=== PATIENT | female | born 1975 | race Caucasian/White ===

== ENCOUNTER 2018-12-21 15:37 | Inpatient (IN) ==
[2018-12-21] MEDS ORDERED: D5W 1,000 ML IV PRN (17:28)
[2018-12-21] MEDS ORDERED: MAALOX PLUS LIQUID PO PRN (17:28)
[2018-12-21] MEDS ORDERED: IMODIUM PO PRN (17:28)
[2018-12-21] MEDS ORDERED: SEROQUEL PO PRN (17:28)
[2018-12-21] MEDS ORDERED: ZOFRAN ODT PO PRN (17:28)
[2018-12-21] MEDS ORDERED: ZOFRAN IV PRN (17:28)
[2018-12-21] MEDS ORDERED: PHENOBARBITAL IV PRN (17:28)
[2018-12-21] MEDS ORDERED: TYLENOL PO PRN (17:28)
[2018-12-21] MEDS ORDERED: SENOKOT PO PRN (17:28)
[2018-12-21] MEDS ORDERED: MOTRIN PO PRN (17:28)
[2018-12-21] MEDS ORDERED: DULCOLAX PR PRN (17:28)
[2018-12-21] MEDS ORDERED: DESYREL PO PRN (17:28)
[2018-12-21] MEDS ORDERED: BENTYL PO PRN (17:28)
[2018-12-21] MEDS ORDERED: ATARAX PO PRN (17:28)
[2018-12-21] MEDS ORDERED: NICODERM PATCH TD PRN (17:28)
[2018-12-21] MEDS ORDERED: SALINE LOCK IV FLUID XX ONE (17:28)
[2018-12-21] MEDS ORDERED: TUBERSOL ID ONE (17:28)
[2018-12-21] MEDS ORDERED: ROBAXIN PO PRN (17:28)
[2018-12-21] MEDS ORDERED: LIBRIUM PO SCH (17:30)
[2018-12-21 17:39] LABS: URINE SOURCE VOIDED
[2018-12-21 17:55] LABS: UR AMPHETAMINES QUAL NONE DETECTED (NONE DETECT); UR BARBITUATES QUAL NONE DETECTED (NONE DETECT); UR BENZODIAZEPIN QUAL PRESUMPTIVE POSITIVE (NONE DETECT); UR CANNABINOIDS QUAL NONE DETECTED (NONE DETECT); UR COCAINE QUAL NONE DETECTED (NONE DETECT); UR METHADONE QUAL NONE DETECTED (NONE DETECT); UR METHAMPHETAMINE QUAL NONE DETECTED (NONE DETECT); UR OPIATES QUAL NONE DETECTED (NONE DETECT); UR OXYCODONE QUAL NONE DETECTED (NONE DETECT); UR PCP QUAL NONE DETECTED (NONE DETECT); UR PROPOXYPHENE QUAL NONE DETECTED (NONE DETECT); UR TCA QUAL NONE DETECTED (NONE DETECT)
[2018-12-21 18:07] LABS: BILIRUBIN URINE NEGATIVE (NEGATIVE); BLOOD URINE 3+ (NEGATIVE); CLARITY CLEAR (CLEAR); COLOR YELLOW; KETONE URINE 2+(Moderate) mg/dL (NEGATIVE); LEUKOCYTES URINE NEGATIVE (NEGATIVE); NITRITE URINE NEGATIVE (NEGATIVE); PH URINE 6.5; PROTEIN URINE TRACE mg/dL (NEGATIVE); UROBILINOGEN URINE NORMAL
[2018-12-21 18:08] LABS: URINE BACTERIA 2+ /HFP; URINE CAST NONE SEEN /LPF; URINE CRYSTAL NONE SEEN /HPF; URINE EPITHELIAL CELLS >10 /HPF (<10); URINE WBC <10 /HPF (<10); URINE YEAST NONE SEEN /HPF
[2018-12-21 18:24] LABS: HEMATOCRIT 39.5 % (37.0-47.0); HEMOGLOBIN 13.3 g/dL (12.0-16.0); MCH 31.2 PG (27-31); MCHC 33.7 g/dL (33-37); MCV 92.7 FL (81-99); MPV 9.3 FL (7.4-10.4); RBC 4.26 XMIL (4.2-5.4); RDW 14.1 % (11.5-14.5); WBC 10.67 X1000 (4.8-10.8)
[2018-12-21 18:39] LABS: INR 0.93; PROTIME 12.9 Seconds (11.0-16.0)
[2018-12-21 18:59] LABS: AMYLASE 87 U/L (20-200); LIPASE 131 U/L (13-60)
[2018-12-21 19:01] LABS: AGAP 14; ALBUMIN 4.6 g/dL (3.5-5.0); ALKALINE PHOSPHATASE 51 U/L (32-104); BUN 10 mg/dL (8-22); CALCIUM 9.6 mg/dL (8.8-10.2); CHLORIDE 100 mmol/L (98-107); COSMO 273; CREATININE 0.5 mg/dL (0.5-0.9); ESTIMATED GFR > 60; GLUCOSE 101 mg/dL (70-104); GOT 33 U/L (10-30); GPT 41 U/L (10-36); POTASSIUM 3.6 mmol/L (3.5-5.1); SODIUM 137 mmol/L (136-145); TCO2 23 mmol/L (25-35); TOTAL PROTEIN 7.9 g/dL (6.3-8.3)
[2018-12-21] MEDS: LIBRIUM PO SCH (21:08)
--- NOTE | 2018-12-21 23:31 | HISTORY AND PHYSICAL ---
CHIEF COMPLAINT: Nausea, vomiting. HISTORY PRESENT ILLNESS: Patient is a very pleasant female who presented to [facility] secondary to nausea, vomiting, abdominal pain. Notes that she has been having some mild tremors and paresthesias. She has been drinking heavily. She has tried to go to rehab today but they told her given her alcohol level was positive she would need to detox first. PAST MEDICAL HISTORY: She has no active medical problems other than chronic anxiety. MEDICATIONS: No current prescription medications. ALLERGIES: Phenobarbital causing itching. REVIEW OF SYSTEMS: CIWA score 26 secondary to nausea, vomiting, dry heaves, extremely thirsty, itching, diaphoretic, tremors with her arms at rest, she shaking, notes she has a headache. Denies any blurred vision, change in vision, denies any focalized numbness, tingling, weakness in her extremities, denies any dysuria, frequency, urgency, constipation, melena, hematochezia. SUBSTANCE ABUSE HISTORY: She was in treatment in September 2007 stayed for 12 days. Notes that alcohol has caused work problems and social stressors. Started drinking at 16 currently drinks 2 bottles of wine and around 8 shots a day. Does not remember the last day she did not drink it may have been 2 or 3 weeks ago. Started smoking at an early age currently smokes pack a day. FAMILY HISTORY: Father was an alcoholic. PHYSICAL: Vital Signs: Reviewed and stable. She is awake, alert. She is oriented, she is in no respiratory distress but is somewhat ill-appearing. HEENT: Normocephalic. Neck: Supple. CV: Regular rate. No murmurs. Chest: Clear. Abdomen: Soft, nondistended, nontender. Extremities: Moves all extremities. Neuro: No changes. Skin: Warm and dry. No rashes. She is jittery, anxious, has to be redirected to answer questions, she is noted to have some mild tremors. ASSESSMENT: 1. Nausea, vomiting. 2. Abdominal pain. 3. Myalgias. 4. Tremors. 5. Paresthesias. 6. Paroxysmal sweating. 7. Alcohol abuse withdrawal and stabilization. 8. Chronic smoking abuse. PLAN: Will admit patient hospital, place her on Librium taper, continue counseling and will monitor for withdrawal. cc: Devon Galdamez MD
[2018-12-22] MEDS: LIBRIUM PO SCH ×3 (01:12→13:05)
[2018-12-22] MEDS: PROTONIX PO SCH (06:10)
[2018-12-22] MEDS: THERA M PLUS PO SCH (08:49)
[2018-12-22] MEDS: FOLIC ACID PO SCH (08:49)
[2018-12-22] MEDS: VITAMIN B-1 PO SCH (08:49)
[2018-12-22] MEDS ORDERED: M.V.I.-12 10 ML, FOLIC ACID 1 MG, MAGNESIUM SULFATE 1 GM, THIAMINE 100 MG in NS 1,000 ML IV ONE (09:00)
[2018-12-22] MEDS ORDERED: LIBRIUM PO SCH (17:00)
[2018-12-23] MEDS: PROTONIX PO SCH ×2 (06:08→08:49)
[2018-12-23 07:23] VITALS: BP 100/68
--- NOTE | 2018-12-23 08:31 | PROGRESS NOTE ---
DATE: 12/23/2018 SUBJECTIVE: Mr. Montelongo is tremendously better. He [*]a bad night with tremors and mild sweating, although they seem to be improving this morning. OBJECTIVE: Vital signs: Temperature 97.6 degrees, pulse 78, respirations [*], blood pressure 93/60 when asleep to 139/93. HEENT: Normocephalic. Neck: Supple. Cardiovascular: Regular rate. No murmurs. Chest: Clear, nonlabored. Abdomen: Soft, nondistended. Extremities: Moves all extremities. ASSESSMENT: 1. Nausea and vomiting. 2. Abdominal pain. 3. Myalgias. 4. Paresthesias. 5. Paroxysmal sweating. 6. Alcohol abuse withdrawal and stabilization. PLAN: We will continue to wean Librium as tolerated, we will decrease to 25 a day and follow. cc: Devon Galdamez MD
[2018-12-23] MEDS: FOLIC ACID PO SCH (08:49)
[2018-12-23] MEDS: THERA M PLUS PO SCH (08:49)
[2018-12-23] MEDS: VITAMIN B-1 PO SCH (08:49)
[2018-12-23] MEDS ORDERED: LIBRIUM PO ONE ×2 (09:00→13:00)
[2018-12-23] MEDS ORDERED: PNEUMOVAX 23 IM ONE (10:24)
[2018-12-23] MEDS ORDERED: FLU VACCINE IM ONE (10:24)
--- NOTE | 2018-12-25 04:55 | DISCHARGE SUMMARY ---
ADMISSION DATE: 12/21/2018 DISCHARGE DATE: 12/23/2018 DISCHARGE DIAGNOSES: 1. Nausea and vomiting. 2. Abdominal pain. 3. Myalgias. 4. Paresthesias. 5. Paroxysmal sweating. 6. Alcohol abuse withdrawal and stabilization. 7. Chronic anxiety. CONSULTATIONS: None. PROCEDURES: None. BRIEF HOSPITAL COURSE: The patient was admitted to the hospital secondary to nausea, vomiting, abdominal pain, and myalgias. She notes that she was having tremors and myalgias. She was admitted to the hospital, and placed on Librium taper which she tolerated extremely well. We were able to taper fairly rapidly. She had no symptoms. On discharge, she notes that she is feeling great. She was actually able to walk downstairs to the cafeteria to get lunch. She had no complications. No tremors. She notes that she has been in withdrawal multiple times in the past, but has never had DTs or actually gotten very ill from it. DISPOSITION: Patient will be discharged to further inpatient rehab. Discussed with her the importance of avoidance, the importance of changing her mind set, the importance of outpatient life counseling as well as a sponsor. TIME SPENT: Greater than 30 minutes was spent in total care. cc: Devon Galdamez MD
== END 2018-12-23 13:09 | disposition home or self-care (01) | DRG 897 ==
LOC: SUATTDRO 15:39 → P.DIRADM 15:39 → P.MEDSURG 16:44
PROVIDERS: ADMIT Family Medicine; ATTEND Family Medicine